=== PATIENT | female | born 1990 | race Caucasian/White ===

== ENCOUNTER 2023-11-07 07:44 | Inpatient (IN) | payer OTHER, SELFPAY ==
[2023-11-07 07:57] VITALS: BP 136/76; BMI 35.3
[2023-11-07] MEDS: LR 1000 IV ×2 (10:41→20:02)
[2023-11-07 11:10] LABS: % Basophils 0.1 % (0-2); % Eosinophils 0.8 % (0-6); % Immature Granulocytes 0.6 % (0-0.5); % Lymphocytes 17.4 % (20.5-51.1); % Monocytes 6.7 % (1.7-9.3); % Neutrophils 74.4 % (42.2-75.2); Absolute Eosinophils 0.1 10^3/uL (0-0.7); Absolute Immature Granulocytes 0.1 10^3/uL (0-0.05); Absolute Lymphocytes 1.8 10^3/uL (1.2-3.4); Absolute Monocytes 0.7 10^3/uL (0.1-0.6); Absolute Neutrophils 7.9 10^3/uL (1.4-6.5); Hematocrit 39.1 % (37.0-47.0); Hemoglobin 13.5 g/dL (12.0-16.0); Mean Corp Hgb Conc. 34.5 g/dL (33.0-37.0); Mean Corpuscular Hgb 30.9 pg (27.0-31.0); Mean Corpuscular Volume 89.5 fL (81.0-99.0); Mean Platelet Volume 12.3 fL (7.4-10.4); Nucleated Red Blood Cells % 0 %; Platelet Count 182 10^3/uL (130-400); Red Blood Cell Count 4.37 10^6/uL (4.20-5.40); Red Cell Dist. Width 13.6 % (11.5-14.5); White Blood Cell Count 10.6 10^3/uL (4.8-10.8)
[2023-11-07] MEDS: FENTANYL/BUPIVACAINE 100 EPIDURAL ×2 (12:58→20:07)
[2023-11-07] MEDS: SUBLIMAZE 100 MCG EPIDURAL (12:58)
[2023-11-07] MEDS: PITOCIN 30 UNITS/NSS 500 ML IV (19:29)
[2023-11-08] MEDS: PITOCIN 30 UNITS/NSS 500 ML IV (01:59)
[2023-11-08] MEDS: MOTRIN 600 MG PO (15:04)
[2023-11-08] MEDS: PRENATAL PLUS 1 TABLET PO (15:06)
[2023-11-09] MEDS: MOTRIN 600 MG PO ×2 (03:14→21:13)
[2023-11-09 06:09] LABS: Hematocrit 31.1 % (37.0-47.0)
[2023-11-09] MEDS: PRENATAL PLUS 1 TABLET PO (08:33)
[2023-11-09] MEDS: SENOKOT-S 1 TABLET PO (08:33)
[2023-11-09 17:18] LABS: Syphilis/T. pallidum Ab Reflex Negative (Negative)
[2023-11-10] MEDS: MOTRIN 600 MG PO (06:21)
[2023-11-10] MEDS: PRENATAL PLUS 1 TABLET PO (10:45)
== END 2023-11-10 12:15 | disposition home or self-care (01) | DRG 807 ==
LOC: LDRP 07:44
PROVIDERS: ADMITTING PHYSICIAN Obstetrics & Gynecology
PROC: 10907ZC Drainage of Amniotic Fluid, Therapeutic from Products of Conception, Via Natural or Artificial Opening (ICD-10-PCS; 2023-11-07)
PROC: 10E0XZZ Delivery of Products of Conception, External Approach (ICD-10-PCS; 2023-11-08)
PROC: 0KQM0ZZ Repair Perineum Muscle, Open Approach (ICD-10-PCS; 2023-11-08)
DX: O36.8130 Decreased fetal movements, third trimester, not applicable or unspecified (principal); Z37.0 Single live birth; O99.284 Endocrine, nutritional and metabolic diseases complicating childbirth; E28.2 Polycystic ovarian syndrome; O70.1 Second degree perineal laceration during delivery; Z3A.39 39 weeks gestation of pregnancy
CPT/HCPCS: 36415; 85014; 85018; 85025; 86780; 86850; 86900; 86901